=== PATIENT | female | born 1965 | race Two or more races ===

== ENCOUNTER 2024-01-01 20:17 | Inpatient (IN) | payer OTHER ==
[~2024-01-01] VITALS: Ht 101.6 cm; Wt 136.1 kg
[2024-01-01] MEDS ORDERED: COZAAR100 MG (20:26)
[2024-01-01] MEDS ORDERED: ATORVASTATIN CA40 MG (20:26)
[2024-01-01] MEDS ORDERED: SYNJARDY 5-1,01 EACH (20:27)
[2024-01-01] MEDS ORDERED: HUMALOG100 UNIT/1 (20:27)
[2024-01-01] MEDS ORDERED: CLONAZEPAM1 MG (20:28)
[2024-01-01] MEDS ORDERED: TOPROL XL100 M1 (20:28)
[2024-01-01] MEDS ORDERED: LANTUS SOL100 UNIT/1 (20:28)
[2024-01-01] MEDS ORDERED: SEROQUEL XR150 MG (20:29)
[2024-01-01] MEDS ORDERED: TRAZODONE HCL150 MG (20:29)
[2024-01-01] MEDS ORDERED: VENLAFAXINE HC150 MG (20:30)
[2024-01-01] MEDS ORDERED: VENLAFAXINE HCL75 M2 (20:30)
[2024-01-01] MEDS ORDERED: TRULICITY1.5 MG/0.5 (20:33)
[2024-01-01] MEDS ORDERED: FAMOtidine 10 MG/ML (4ML VIAL) IV ONE (20:45)
[2024-01-01] MEDS ORDERED: 0.9 % SODIUM CHLORIDE 1,000 ML IV ONE (20:45)
[2024-01-01] MEDS ORDERED: FAMOTIDINE/PF 20 MG/2 ML VIAL ONE (21:00)
[2024-01-01 21:22] LABS: HEMATOCRIT 37.7 % (36.0-45.00); HEMOGLOBIN 12.2 g/dL (12.0-15.00); MEAN CELL VOLUME 83.6 fL (80.00-100.00); MEAN CORPUSCULAR HGB CONC 32.3 g/dl (32.0-36.0); PLATELET COUNT 201 K/uL (150-450); RED BLOOD COUNT 4.51 M/uL (4.00-6.00); RED CELL DISTRIBUTION WIDTH 16.5 % (11.5-14.5)
[2024-01-01 21:24] LABS: URINE BILIRRUBIN Negative (NEGATIVE); URINE BLOOD Small; URINE COLOR Yellow; URINE LEUKOCYTE Negative; URINE NITRATE Negative; URINE UROBILINOGEN 0.2 E.U./dl
[2024-01-01 21:25] LABS: URINE BACTERIA 64.2 uL (0.0-1933); URINE EPITHELIAL CELLS 7.4 uL (0.0-38.8); URINE RBC 20.6 uL (0.0-20.8); URINE WBC 26.1 uL (0.0-23.2)
[2024-01-01 21:27] LABS: URINE APPEARANCE CLEAR; URINE CAST 0.45 uL (0.0-1.40); URINE GLUCOSE >=1000 MG/DL (NEGATIVE); URINE KETONE 80 (NEGATIVE); URINE PROTEIN 100 (NEGATIVE)
[2024-01-01 21:35] LABS: ABG PH 7.398 (7.35-7.45); ABG PO2 108.5 mmHg (80-100); BICARBONATE 22.3 mmol/l (23-25); SaO2 98.1 %; Tco2 23.4 mmol/l
[2024-01-01 21:41] LABS: INR 1.05; PARTIAL THROMBOPLASTIN TIME 24.8 SECONDS (22.0-34.0); PROTHROMBIN TIME 11.4 SECONDS (9.0-11.5)
[2024-01-01 21:47] LABS: ALBUMIN 2.6 gm/dL (3.4-5.0); BILIRUBIN TOTAL 0.8 mg/dL (0.3-1.2); CALCIUM 8.6 mg/dL (8.5-10.1); CREATININE SERUM 0.89 mg/dL (0.55-1.02); GFR 64.7; GLOBULINA 4.9 G/DL (2.4-3.5); POTASSIUM 5.18 mEq/L (3.5-5.1); TOTAL PROTEIN 7.5 gm/dL (6.4-8.2)
[2024-01-01 21:53] LABS: allen test SATISFACTORY; o2 36 %; puncture site RADIAL LEFT
[2024-01-01] MEDS ORDERED: INSULIN REGULAR, HUMAN 1,000 UNIT/10 ML UNITS IV ONE (22:15)
[2024-01-01] MEDS ORDERED: NITROGLYCERIN IN 5 % DEXTROSE 250 ML IV SCH (23:11)
[2024-01-01] MEDS ORDERED: FUROsemide 20 MG/2 ML VIAL IV SCH (23:12)
[2024-01-01] MEDS ORDERED: CEFTRIAXONE SODIUM 2,000 MG in 0.9 % SODIUM CHLORIDE 100 ML IV SCH (23:12)
[2024-01-01] MEDS ORDERED: AZITHROMYCIN 500 MG in DEXTROSE 5 % IN WATER 250 ML IV SCH (23:12)
[2024-01-01] MEDS ORDERED: INSULIN LISPRO 1,000 UNIT/10 ML UNITS SUBCUTANEO PRN (23:15)
[2024-01-01] MEDS ORDERED: DEXTROSE 50 % IN WATER 0.5 G/ML DISP.SYRIN IV PRN (23:15)
[2024-01-01] MEDS ORDERED: ACETAMINOPHEN 500 MG GEL..CAP PO PRN (23:15)
[2024-01-01] MEDS ORDERED: ENOXAPARIN SODIUM 40 MG/0.4 ML SYRINGE SUBCUTANEO SCH (23:18)
[2024-01-01] MEDS ORDERED: INSULIN REGULAR, HUMAN 1,000 UNIT/10 ML UNITS ONE (23:28)
[2024-01-01] MEDS ORDERED: CEFTRIAXONE SODIUM 2,000 MG VIAL ONE (23:50)
[2024-01-01] MEDS ORDERED: FUROsemide 20 MG/2 ML VIAL ONE (23:50)
[2024-01-01] MEDS ORDERED: AZITHROMYCIN 500 MG VIAL IV ONE (23:51)
[2024-01-01] MEDS ORDERED: NITROGLYCERIN IN 5 % DEXTROSE 50 MG/250 ML BOTTLE IV ONE (23:51)
[2024-01-01] MEDS ORDERED: ENOXAPARIN SODIUM 40 MG/0.4 ML SYRINGE SUBCUTANEO ONE (23:51)
[2024-01-02 00:45] LABS: FERRITIN 209.7 NG/ML (8-252)
[2024-01-02] MEDS ORDERED: IPRATROPIUM BROMIDE 0.5 MG/2.5 ML AMPUL.NEB IH SCH (01:00)
[2024-01-02 01:15] LABS: C-REACTIVE PROTEIN 11.5 MG/DL (0.00-0.29)
[2024-01-02] MEDS ORDERED: ACETAMINOPHEN 500 MG GEL..CAP PO ONE (02:03)
[2024-01-02] MEDS ORDERED: INSULIN LISPRO 1,000 UNIT/10 ML UNITS SUBCUTANEO ONE (02:43)
[2024-01-02] MEDS ORDERED: NITROGLYCERIN IN 5 % DEXTROSE 250 ML IV SCH (08:38)
[2024-01-02] MEDS ORDERED: CLONAZEPAM 1 MG TABLET PO SCH (09:00)
[2024-01-02] MEDS ORDERED: QUETIAPINE FUMARATE 100 MG TABLET PO SCH ×2 (09:00)
[2024-01-02] MEDS ORDERED: FAMOTIDINE/PF 20 MG in 0.9 % SODIUM CHLORIDE 8 ML IV PUSH SCH ×2 (09:00→21:00)
[2024-01-02] MEDS ORDERED: DEXAMETHASONE SODIUM PHOSPHATE 4 MG/ML VIAL IV SCH (09:00)
[2024-01-02] MEDS ORDERED: ATORVASTATIN CALCIUM 40 MG TABLET PO SCH (09:00)
[2024-01-02] MEDS ORDERED: CHLORHEXIDINE GLUCONATE 120 ML BOTTLE TOP ONE (11:13)
[2024-01-02] MEDS ORDERED: REMDESIVIR 100 MG VIAL IV NR (13:15)
[2024-01-02] MEDS ORDERED: INSULIN GLARGINE,HUM.REC.ANLOG 1,000 UNITS/10 ML UNITS SUBCUTANEO ONE ×2 (14:45→21:59)
[2024-01-02] MEDS ORDERED: INSULIN LISPRO 1,000 UNIT/10 ML UNITS SUBCUTANEO SCH (16:00)
[2024-01-02] MEDS ORDERED: FAMOtidine 20 MG TABLET PO SCH (21:00)
[2024-01-02] MEDS ORDERED: INSULIN GLARGINE,HUM.REC.ANLOG 1,000 UNITS/10 ML UNITS SUBCUTANEO STA (21:22)
[2024-01-02] MEDS ORDERED: INSULIN REGULAR, HUMAN 1,000 UNIT/10 ML UNITS IV STA (21:26)
[2024-01-02] MEDS ORDERED: LOSARTAN POTASSIUM 25 MG TABLET PO SCH (22:00)
[2024-01-02] MEDS ORDERED: INSULIN REGULAR, HUMAN 1,000 UNIT/10 ML UNITS ONE (22:00)
[2024-01-02] MEDS ORDERED: LOSARTAN POTASSIUM 25 MG TABLET PO ONE (22:02)
[2024-01-03] MEDS ORDERED: AZITHROMYCIN 500 MG in 0.9 % SODIUM CHLORIDE 250 ML IV SCH
[2024-01-03 06:59] LABS: HEMATOCRIT 36.2 % (36.0-45.00); HEMOGLOBIN 11.9 g/dL (12.0-15.00); MEAN CELL VOLUME 81.9 fL (80.00-100.00); MEAN CORPUSCULAR HEMOGLOBIN 26.8 pg (27.00-32.0); MEAN CORPUSCULAR HGB CONC 32.7 g/dl (32.0-36.0); PLATELET COUNT 236 K/uL (150-450); RED BLOOD COUNT 4.43 M/uL (4.00-6.00); RED CELL DISTRIBUTION WIDTH 16.1 % (11.5-14.5)
[2024-01-03 07:09] LABS: ALBUMIN 2.5 gm/dL (3.4-5.0); BILIRUBIN TOTAL 0.55 mg/dL (0.3-1.2); CALCIUM 8.6 mg/dL (8.5-10.1); CREATININE SERUM 0.67 mg/dL (0.55-1.02); GFR 89.78; GLOBULINA 3.8 G/DL (2.4-3.5); POTASSIUM 4.21 mEq/L (3.5-5.1); TOTAL PROTEIN 6.3 gm/dL (6.4-8.2)
[2024-01-03] MEDS ORDERED: FAMOTIDINE/PF 20 MG/2 ML VIAL ONE (07:20)
[2024-01-03] MEDS ORDERED: INSULIN LISPRO 1,000 UNIT/10 ML UNITS SUBCUTANEO SCH (08:00)
[2024-01-03] MEDS ORDERED: REMDESIVIR 100 MG VIAL IV SCH (09:00)
[2024-01-03] MEDS ORDERED: HALOPERIDOL LACTATE 5 MG/ML AMPUL IM PRN (09:15)
[2024-01-03] MEDS ORDERED: EFFEXOR XR 150 MG PO SCH (10:15)
[2024-01-03] MEDS ORDERED: LITHIUM CARBONATE 300 MG CAPSULE PO SCH (10:53)
[2024-01-03] MEDS ORDERED: INSULIN REGULAR, HUMAN 1,000 UNIT/10 ML UNITS IV STA (20:06)
[2024-01-03] MEDS ORDERED: INSULIN GLARGINE,HUM.REC.ANLOG 1,000 UNITS/10 ML UNITS SUBCUTANEO SCH ×2 (21:00)
[2024-01-03] MEDS ORDERED: INSULIN GLARGINE,HUM.REC.ANLOG 1,000 UNITS/10 ML UNITS SUBCUTANEO ONE (21:46)
[2024-01-04 08:09] LABS: ALBUMIN 2.3 gm/dL (3.4-5.0); BILIRUBIN TOTAL 0.46 mg/dL (0.3-1.2); CALCIUM 8.2 mg/dL (8.5-10.1); CREATININE SERUM 0.55 mg/dL (0.55-1.02); GFR 112.74; GLOBULINA 3.6 G/DL (2.4-3.5); POTASSIUM 3.71 mEq/L (3.5-5.1); TOTAL PROTEIN 5.9 gm/dL (6.4-8.2)
[2024-01-04] MEDS ORDERED: INSULIN GLARGINE,HUM.REC.ANLOG 1,000 UNITS/10 ML UNITS SUBCUTANEO SCH (21:00)
[2024-01-04] MEDS ORDERED: AMLODIPINE BESYLATE 5 MG TABLET PO SCH (21:00)
[2024-01-05 08:17] LABS: ALBUMIN 2.3 gm/dL (3.4-5.0); BILIRUBIN TOTAL 0.53 mg/dL (0.3-1.2); CALCIUM 8.3 mg/dL (8.5-10.1); CREATININE SERUM 0.49 mg/dL (0.55-1.02); GFR 128.82; GLOBULINA 3.5 G/DL (2.4-3.5); POTASSIUM 3.72 mEq/L (3.5-5.1); TOTAL PROTEIN 5.8 gm/dL (6.4-8.2)
[2024-01-05] MEDS ORDERED: LOSARTAN POTASSIUM 100 MG TABLET PO SCH (09:00)
[2024-01-05] MEDS ORDERED: LOSARTAN POTASSIUM 25 MG TABLET PO SCH (09:00)
[2024-01-05] MEDS ORDERED: FAMOtidine 20 MG TABLET PO SCH (21:00)
[2024-01-06] MEDS ORDERED: INSULIN LISPRO 1,000 UNIT/10 ML UNITS SUBCUTANEO SCH ×2 (08:00→12:00)
[2024-01-06 08:50] LABS: ALBUMIN 2.6 gm/dL (3.4-5.0); BILIRUBIN TOTAL 0.64 mg/dL (0.3-1.2); CALCIUM 8.4 mg/dL (8.5-10.1); CREATININE SERUM 0.68 mg/dL (0.55-1.02); GFR 88.26; GLOBULINA 3.7 G/DL (2.4-3.5); POTASSIUM 3.61 mEq/L (3.5-5.1); TOTAL PROTEIN 6.3 gm/dL (6.4-8.2)
[2024-01-06] MEDS ORDERED: INSULIN NPH HUMAN ISOPHANE 1,000 UNITS/10 ML UNITS SUBCUTANEO STA (20:37)
[2024-01-06] MEDS ORDERED: INSULIN REGULAR, HUMAN 1,000 UNIT/10 ML UNITS IV STA (20:37)
[2024-01-06] MEDS ORDERED: INSULIN GLARGINE,HUM.REC.ANLOG 1,000 UNITS/10 ML UNITS SUBCUTANEO SCH (21:00)
[2024-01-07] MEDS ORDERED: INSULIN GLARGINE,HUM.REC.ANLOG 1,000 UNITS/10 ML UNITS SUBCUTANEO SCH (09:00)
[2024-01-07 10:17] LABS: ABG PH 7.484 (7.35-7.45); ABG PO2 73.6 mmHg (80-100); ABG pCO2 42.3 mmHg (35-45); BASE EXCESS 6.9 mmol/l; BICARBONATE 31.1 mmol/l (23-25); Tco2 32.4 mmol/l
[2024-01-07 11:40] LABS: HEMATOCRIT 39.2 % (36.0-45.00); HEMOGLOBIN 12.5 g/dL (12.0-15.00); MEAN CELL VOLUME 82.8 fL (80.00-100.00); MEAN CORPUSCULAR HEMOGLOBIN 26.3 pg (27.00-32.0); MEAN CORPUSCULAR HGB CONC 31.8 g/dl (32.0-36.0); PLATELET COUNT 255 K/uL (150-450); RED BLOOD COUNT 4.74 M/uL (4.00-6.00); RED CELL DISTRIBUTION WIDTH 16.1 % (11.5-14.5)
[2024-01-07 12:13] LABS: allen test SATISFACTORY; o2 21 %; puncture site RADIAL RIGHT
[2024-01-07 12:35] LABS: ALBUMIN 2.6 gm/dL (3.4-5.0); ALKALINE PHOSPHATASE 58 U/L (50-136); ALT/SGPT 24 U/L (12-78); ANION GAP 10 (10.0-20.0); AST/SGOT < 3 U/L (15-37); BILIRUBIN TOTAL 0.62 mg/dL (0.3-1.2); BLOOD UREA NITROGEN 17 mg/dL (7-18); BUN CREA RATIO 31 (7.0-25.0); CALCIUM 8.5 mg/dL (8.5-10.1); CARBON DIOXIDE 31 mEq/L (21-32); CHLORIDE 102 mmol/L (98-107); CREATININE SERUM 0.54 mg/dL (0.55-1.02); GFR 115.16; GLOBULINA 3.6 G/DL (2.4-3.5); GLUCOSE FASTING 323 mg/dL (65-100); OSMOLALITY SERUM 293 MOSM/KG (275-295); POTASSIUM 3.44 mEq/L (3.5-5.1); SODIUM 140 mmol/L (136-145); TOTAL PROTEIN 6.2 gm/dL (6.4-8.2)
[2024-01-07] MEDS ORDERED: hydrALAZINE HCL 25 MG TABLET PO SCH (22:22)
[2024-01-08] MEDS ORDERED: AMLODIPINE BESYLATE 10 MG TABLET PO SCH (21:00)
== END 2024-01-08 12:03 | disposition home or self-care (01) | DRG 177 ==
LOC: ER 20:17 → MEDJ 23:21 → ICU-2 23:21 → ICU 23:21 → MEDJ 01-05 11:29
PROVIDERS: General Practice; Internal Medicine Infectious Disease; ADMIT Internal Medicine; ATTEND Internal Medicine
PROC: BW24ZZZ Computerized Tomography (CT Scan) of Chest and Abdomen (ICD-10-PCS; 2024-01-01)
PROC: B24BZZZ Ultrasonography of Heart with Aorta (ICD-10-PCS; 2024-01-01)
PROC: XW033E5 Introduction of Remdesivir Anti-infective into Peripheral Vein, Percutaneous Approach, New Technology Group 5 (ICD-10-PCS; principal; 2024-01-02)
PROC: 02HV33Z Insertion of Infusion Device into Superior Vena Cava, Percutaneous Approach (ICD-10-PCS; 2024-01-03)
PROC: 4A12X4Z Monitoring of Cardiac Electrical Activity, External Approach (ICD-10-PCS; 2024-01-05)
DX: U07.1 COVID-19 (principal); I21.4 Non-ST elevation (NSTEMI) myocardial infarction; J12.82 Pneumonia due to coronavirus disease 2019; I11.0 Hypertensive heart disease with heart failure; I50.9 Heart failure, unspecified; E78.5 Hyperlipidemia, unspecified; E11.65 Type 2 diabetes mellitus with hyperglycemia; Z79.4 Long term (current) use of insulin; E66.01 Morbid (severe) obesity due to excess calories; R41.82 Altered mental status, unspecified; F31.9 Bipolar disorder, unspecified; M79.7 Fibromyalgia